=== PATIENT | female | born 2005 | race African-American/Black ===

== ENCOUNTER 2025-04-23 17:27 | Emergency (ER) | payer SELFPAY ==
[~2025-04-23] VITALS: Ht 157.5 cm; Wt 54.0 kg
[2025-04-23 17:31] VITALS: O2SAT 98
[2025-04-23 18:56] LABS: COLOR URINE YELLOW (YELLOW); GLUCOSE URINE NEGATIVE (NEGATIVE); KETONES URINE 3+ (NEGATIVE); LEUKOCYTE ESTERASE URINE NEGATIVE (NEGATIVE); NITRITE URINE NEGATIVE (NEGATIVE); OCCULT BLOOD URINE NEGATIVE (NEGATIVE); PH URINE 7.5 (4.5-8.0); PROTEIN URINE TRACE (NEGATIVE); SPECIFIC GRAVITY URINE 1.024 (1.005-1.030); UROBILINOGEN URINE 1.0 E.U./dL (0.2-1.0)
[2025-04-23 19:13] LABS: *AMPHETAMINES SCREEN URINE NEGATIVE (NEGATIVE); *BARBITURATES SCREEN URINE NEGATIVE (NEGATIVE); *BENZODIAZEPINES SCREEN URINE NEGATIVE (NEGATIVE); *COCAINE SCREEN URINE NEGATIVE (NEGATIVE); CANNABINOID URINE SCREEN PRESUMPTIVE POSITIVE (NEGATIVE); ECSTASY MDMA SCREEN URINE NEGATIVE (NEGATIVE); METHADONE URINE SCREEN NEGATIVE (NEGATIVE); OPIATES URINE SCREEN NEGATIVE (NEGATIVE); PHENCYCLIDINE URINE SCREEN NEGATIVE (NEGATIVE)
[2025-04-23 19:17] LABS: BACTERIA URINE NONE SEEN; CLARITY URINE SL HAZY (CLEAR); MUCUS URINE 1+ /lpf (< = 2+); RBC URINE NONE SEEN /hpf (0-2); SQUAMOUS EPITHELIAL CELL URINE 1+ /lpf (RARE/1+); WBC URINE 0-2 /hpf (0-2)
[2025-04-23 20:02] LABS: HEMATOCRIT. 39.4 % (36.0-48.0); HEMOGLOBIN. 12.8 g/dL (12.0-16.0); MEAN PLATELET VOLUME 8.6 fl (7.4-10.4); PLATELET 328 x1000/uL (130-400); RED BLOOD CELL COUNT 4.56 mill/uL (4.2-5.4); RED CELL DISTRIBUTION WIDTH 12.5 % (11.6-14.6)
[2025-04-23 20:11] LABS: CREATININE 0.7 mg/dL (0.6-1.0); UREA NITROGEN BLOOD < 5 mg/dL (9-23)
[2025-04-23 20:18] LABS: LYMPHOCYTES % MANUAL 5.0 % (20.0-60.0); MONOCYTES % MANUAL 1.0 % (2.0-8.0); NEUTROPHILS % MANUAL 94.0 % (45.0-75.0); PLATELET ESTIMATE NORMAL
[2025-04-23 20:22] LABS: INR 1.0
[2025-04-23 20:25] LABS: B-HCG QUANTITATIVE 30012 mIU/mL (<6)
[2025-04-23] MEDS ORDERED: ONDA-239 PO (20:32)
[2025-04-23] MEDS ORDERED: PREN-28 MT (20:32)
[2025-04-23 20:45] VITALS: BP 128/86; PULSE 72; RESP 14; TEMP 36.7; O2SAT 99
== END 2025-04-23 20:48 | disposition home or self-care (01) ==
LOC: ER 17:27
DX: O21.9 Vomiting of pregnancy, unspecified (principal); O99.511 Diseases of the respiratory system complicating pregnancy, first trimester; Z3A.01 Less than 8 weeks gestation of pregnancy; Z79.899 Other long term (current) drug therapy; Z98.890 Other specified postprocedural states
CPT/HCPCS: 36415; 76801; 80048; 80305; 81003; 81025; 84702; 85025; 86850; 86900; 99284